=== PATIENT | male | born 1945 | race American Indian/Alaskan Native ===

== ENCOUNTER 2018-09-23 23:48 | Emergency (ER) | payer MEDICARE, OTHER ==
--- NOTE | 2018-09-24 01:32 | Emergency Department Report ---
ED Male HPI - General Chief complaint: Urogenital-Male Stated complaint: UNABLE TO URINATE Time Seen by Provider: 09/24/18 00:23 Source: patient Mode of arrival: Ambulatory Limitations: No Limitations - History of Present Illness Initial comments: 72-year-old male with past history of prostate cancer and prostate resection presents with bloody urine and difficulty urinating x 1 day. Patient believes this was triggered by eating spicy food. MD Complaint: other (hematuria) -: This afternoon Radiation: none Severity: moderate Consistency: constant Improves with: none Worsens with: none - Related Data Previous Rx's Medication Instructions Recorded Last Taken Type Ciprofloxacin HCl [Cipro] 500 mg PO BID #14 tablet 09/24/18 Unknown Rx Allergies Allergy/AdvReac Type Severity Reaction Status Date / Time No Known Allergies Allergy Unverified 09/23/18 23:56 ED Review of Systems ROS: Stated complaint: UNABLE TO URINATE Other details as noted in HPI Comment: All other systems reviewed and negative Constitutional: denies: chills, fever Gastrointestinal: abdominal pain Genitourinary: hematuria, other (difficulty urinating) ED Past Medical Hx - Past Medical History Previous Medical History?: Yes Hx Hypertension: Yes - Surgical History Past Surgical History?: Yes Additional Surgical History: prostate - Social History Smoking Status: Former Smoker Substance Use Type: None - Medications Home Medications: Home Medications Medication Instructions Recorded Confirmed Last Taken Type Ciprofloxacin HCl [Cipro] 500 mg PO BID #14 tablet 09/24/18 Unknown Rx ED Physical Exam - General Limitations: No Limitations General appearance: alert, in no apparent distress - Head Head exam: Present: atraumatic, normocephalic - Eye Eye exam: Present: normal appearance - ENT ENT exam: Present: mucous membranes moist - Neck Neck exam: Present: normal inspection - Respiratory Respiratory exam: Present: normal lung sounds bilaterally. Absent: respiratory distress - Cardiovascular Cardiovascular Exam: Present: normal rhythm, bradycardia - GI/Abdominal GI/Abdominal exam: Present: soft, tenderness (mild suprapubic) - Extremities Exam Extremities exam: Present: normal inspection - Neurological Exam Neurological exam: Present: alert, oriented X3 - Psychiatric Psychiatric exam: Present: normal affect, normal mood - Skin Skin exam: Present: warm, dry, intact, normal color ED Course Vital Signs 09/23/18 09/24/18 09/24/18 23:55 01:01 01:34 Temperature 97.9 F Pulse Rate 56 L 51 L Respiratory 18 9 L 18 Rate Blood Pressure 219/103 157/77 O2 Sat by Pulse 99 99 100 Oximetry ED Medical Decision Making - Medical Decision Making 72-year-old male with past history of prostate disease presents to ER with hematuria and difficulty urinating. Patient able to urinate only a small amount. Garg catheter placed and change 380 mL of bloody urine. UA sent to lab. Will change patient over to a leg bag. Advised to follow-up urology. - Differential Diagnosis urinary retention, UTI, hematuria Critical care attestation.: If time is entered above; I have spent that time in minutes in the direct care of this critically ill patient, excluding procedure time. ED Disposition Clinical Impression: Hematuria Disposition: DC-01 TO HOME OR SELFCARE Is pt being admited?: No Condition: Stable Instructions: Acute Hematuria (ED), Urinary Tract Infection in Men (ED), Garg Catheter Placement and Care (ED) Prescriptions: Ciprofloxacin HCl [Cipro] 500 mg PO BID #14 tablet Referrals: CATHRYN GRUBBS MD [Staff Physician] - 3-5 Days Time of Disposition: 02:03
[2018-09-24 01:57] LABS: Bilirubin,Urine NEG (Negative); Blood,Urine LG (Negative); Color,Urine Red (Yellow); Urobilinogen,Urine < 2.0 mg/dL (<2.0)
[2018-09-24 02:15] LABS: RBC,Urine > 182.0 /HPF (0.0-6.0)
[2018-09-24 02:36] VITALS: BP 156/80
== END 2018-09-24 02:35 | disposition home or self-care (01) ==
LOC: ED 23:48
DX: R31.9 Hematuria, unspecified (principal); I10 Essential (primary) hypertension; Z87.891 Personal history of nicotine dependence
CPT/HCPCS: 51702; 81001